=== PATIENT | female | born 1970 | race African-American/Black ===

== ENCOUNTER 2019-09-30 07:55 | Outpatient (CLI) | payer OTHER, SELFPAY ==
--- NOTE | ~2019-09-30 | MM_ITS ---
EXAMINATION: MM screening [facility] w [facility] HISTORY: Screening mammogram TECHNIQUE: Craniocaudal and mediolateral oblique 3-D tomosynthesis images were obtained and synthetic 2-D images were generated. CAD analysis was submitted and interpreted. COMPARISON: No prior mammogram is available for comparison at this institution. BREAST PARENCHYMAL COMPOSITION: There are scattered areas of fibroglandular density.... FINDINGS: There is no evidence of suspicious mass, calcification, or architectural distortion to sugg est malignancy in either breast. There has been no suspicious interval change. IMPRESSION: 1. No mammographic evidence of malignancy. 2. Recommend routine screening mammography in one year. BI-RADS Category 1: Negative Reviewed, dictated and finalized at location A.
== END 2019-09-30 07:56 | disposition home or self-care (01) ==
DX: Z12.31 Encounter for screening mammogram for malignant neoplasm of breast (principal)
CPT/HCPCS: 77063; 77067

== ENCOUNTER 2020-10-02 07:52 | Outpatient (CLI) | payer OTHER, SELFPAY ==
--- NOTE | ~2020-10-02 | MM_ITS ---
EXAMINATION: MM screening [facility] BI w ashlee HISTORY: Screening TECHNIQUE: Craniocaudal and mediolateral oblique 3-D tomosynthesis images were obtained and synthetic 2-D images were generated. CAD analysis was submitted and interpreted. COMPARISON: Comparison to multiple prior studies sequentially, with oldest reviewed study dated 08/2015. BREAST PARENCHYMAL COMPOSITION: There are scattered areas of fibroglandular density. FINDINGS: There is no evidence of suspicious mass, calcification, or architectural distortion to sugg est malignancy in either breast. There has been no suspicious interval change. IMPRESSION: 1. No mammographic evidence of malignancy. 2. Recommend routine screening mammography in one year. BI-RADS Category 1: Negative Reviewed, dictated and finalized at location A.
== END 2020-10-02 07:53 | disposition home or self-care (01) ==
LOC: ANHIMG 07:57
DX: Z12.31 Encounter for screening mammogram for malignant neoplasm of breast (principal)
CPT/HCPCS: 77063; 77067

== ENCOUNTER 2021-10-04 16:39 | Outpatient (CLI) | payer OTHER, SELFPAY ==
--- NOTE | ~2021-10-04 | MM_ITS ---
EXAMINATION: MM screening [facility] BI w ashlee HISTORY: Screening TECHNIQUE: Craniocaudal and mediolateral oblique 3-D tomosynthesis images were obtained and synthetic 2-D images were generated. CAD analysis was submitted and interpreted. COMPARISON: Comparison to multiple prior studies sequentially, with oldest reviewed study dated 08/2015. BREAST PARENCHYMAL COMPOSITION: There are scattered areas of fibroglandular density. FINDINGS: There is no evidence of suspicious mass, calcification, or architectural distortion to sugg est malignancy in either breast. There has been no suspicious interval change. IMPRESSION: 1. No mammographic evidence of malignancy. 2. Recommend routine screening mammography in one year. BI-RADS Category 1: Negative Reviewed, dictated and finalized at location A.
== END 2021-10-04 16:40 | disposition home or self-care (01) ==
LOC: ANHIMG 16:41
PROVIDERS: PCP Physician Assistant; Visit Provider Physician Assistant
DX: Z12.31 Encounter for screening mammogram for malignant neoplasm of breast (principal)
CPT/HCPCS: 77063; 77067

== ENCOUNTER 2023-09-04 08:35 | Outpatient (CLI) | payer OTHER, SELFPAY ==
--- NOTE | ~2023-09-04 | MM_ITS ---
EXAMINATION: MM screening [facility] HISTORY: Screening mammogram TECHNIQUE: Craniocaudal and mediolateral oblique 3-D tomosynthesis images were obtained and synthetic 2-D images were generated. CAD analysis was submitted and interpreted. COMPARISON: October 04, 2021, October 02, 2020 bilateral screening mammogram examinations BREAST PARENCHYMAL COMPOSITION: There are scattered areas of fibroglandular density. FINDINGS: There is no evidence of suspicious mass, calcification, or architectural distortion to sugg est malignancy in either breast. There has been no suspicious interval change. IMPRESSION: 1. No mammographic evidence of malignancy. 2. Recommend routine screening mammography in one year. BI-RADS Category 1: Negative Reviewed, dictated and finalized at location A.
== END 2023-09-04 08:36 | disposition home or self-care (01) ==
PROVIDERS: PCP Physician Assistant; Visit Provider Physician Assistant
DX: Z12.31 Encounter for screening mammogram for malignant neoplasm of breast (principal)
CPT/HCPCS: 77063; 77067

== ENCOUNTER 2024-09-13 14:22 | Outpatient (CLI) | payer OTHER, SELFPAY ==
--- NOTE | ~2024-09-13 | MM_ITS ---
EXAMINATION: MM screening juventino BI w ashlee HISTORY: Screening TECHNIQUE: Craniocaudal and mediolateral oblique 3-D tomosynthesis images were obtained and synthetic 2-D images were generated. CAD analysis was submitted and interpreted. COMPARISON: 09/04/2023 and dating back to 09/30/2019 BREAST PARENCHYMAL COMPOSITION: There are scattered areas of fibroglandular density. FINDINGS: Punctate calcifications are detected bilaterally, stable and benign in appearance. Stable parenchymal pattern without suspicious microcalcifications, architectural distortion, discrete masses or significant asymmetry. IMPRESSION: 1. No mammographic evidence of malignancy. 2. Recommend routine screening mammography in one year. BI-RADS Category 2: Benign finding(s). Reviewed, dictated and finalized at location A.
--- OUTSIDE RECORDS SUMMARY | 2024-09-13 16:37 | XMS_ITS | Data Portability ---
Author Organization [facility] Address [address] [place] [address] Care Team Providers Care Student Financial Services Counselor Name Role Phone GLORIA SAEED Primary Care Provider Assessment Encounter Date Assessment Date Assessment LastModified by Organization Details LastModified Time 09/17/2021 09/17/2021 Last pap 2019, nl. Rec'd pt schedule upcoming WWE. [email or web address] Not available 09/17/2021 11:18:55 Plan of Treatment Reminders Order Date Submit Date Provider Last Modified By Organization Details Last Modified Time Details Appointments None recorde d. Lab CMP, serum or plasma 2022 023 [facility]ON [facility], [address], [place], [address], 3 23:09:08 lipid panel, serum 2022 023 [facility], [address], [place], [address], 3 23:09:07 CBC w/ auto diff 2022 023 [facility], [address], [place], [address], 3 23:09:08 TSH + free T4, serum 2022 023 [facility], [address], [place], [address], 3 12:08:22 HbA1c (hemogl obin A1c), blood 2022 023 [place] [facility], [address], [place], [address], 3 12:08:23 bacteri al vaginos is score, SHIKHA+pro be, vaginal fluid (OBS) 2022 023 [facility], [address], [place], [address], 3 12:08:22 cytolog y report, thin prep, smear or scrapin g, cervica l or vaginal 2021 022 [facility], [address], [place], [address], 2 09:38:09 bacteri al vaginos is score, SHIKHA+pro be, vaginal fluid (OBS) 2021 022 [facility], [address], [place], [address], 2 08:22:15 CBC w/ auto diff 2021 022 [facility], [address], [place], [address], 2 07:11:30 CMP, serum or plasma 2021 022 [facility], [address], [place], [address], 2 07:11:31 lipid panel, serum 2021 [facility], [address], [place], [address], 2 07:11:31 HbA1c (hemogl obin A1c), blood 2021 022 [facility], [address], [place], [address], 2 07:11:32 TSH + free T4, serum 2021 022 [place] [facility], [address], [place], [address], 2 07:11:29 bacteri al vaginos is + vaginit is panel, vaginal 2020 021 [facility] (Lab), [address], [place], [address], 15:10:14 Referral gastroe nterolo gist referra l 2021 022 [facility], [address], [place], [address], 2 11:24:06 Procedures colonos copy procedu re (PROC) 2021 022 [facility] (Surgery Sched), [address], [place], [address], 2 11:14:25 Surgeries None recorde d. Imaging MAMMO, screeni ng, bilater al 2022 023 [facility], [address], [place], [address], 3 11:40:23 MAMMO, screeni ng, bilater al 2020 021 [facility], [address], [place], [address], 1 15:12:44 Medication Orders nicotin e 14 mg/24 hr daily transde rmal patch 2022 023 [id number], [address], [place], [place], [id number], 3 11:40:23 Dulcola x (bisaco dyl) 5 mg tablet, delayed release 2021 [facility] #[id number], [address], [place], [place], [id number], 10:21:31 Miralax 17 gram/do se oral powder 2021 [facility] #[id number], [address], [place], [place], [id number], 10:21:19 Patient TargetsNo targets recorded. Patient Instructions Encounter Date Encounter Id Patient Instructions Last Modified By Organization Details Last Modified Time 09/06/2020 [id number] hot flashes during menopause: care instructions Not available 09/06/2020 15:11:11 learning about breast cancer screening Not available 09/06/2020 15:11:11 09/17/2021 [id number] hot flashes during menopause: care instructions [email or web address] Not available 09/17/2021 11:05:01 04/24/2023 [id number] Quitting Tobacco : Care Instructions [email or web address] Not available 04/24/2023 11:40:22 hot flashes during menopause: care instructions [email or web address] Not available 04/24/2023 11:40:23 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 for Screening for malignant neoplasm of colon Referring Physician: Gloria Saeed, Family Medicine, Encounter Date: 09/17/2021 Results Created Date Observation Date Name Description Value Unit Range Abnormal Flag Note LastModifiedBy Organization Detail LastModifiedTime 09/07/1909/08/2020 bacte rial vagin osis + vagin itis panel , vagin al atopobium vaginae High - 2 score abnormal Not Available [facility] (Lab) [address], [place], [address], 09/08/2020 15:10:14 09/07/19 21 09/08/2020 bacte rial vagin osis + vagin itis panel , vagin al bvab 2 High - 2 score abnormal Not Available [facility] (Lab) [address] [place], [address], 09/08/2020 15:10:14 09/07/19 21 09/08/2020 bacte rial vagin osis + vagin itis panel , vagin al megasphaera 1 High - 2 score abnormal Calcu late total score by alie phoenix the 3 indiv idual bacte rial vagin osis (BV) marke r score s toget her. Total score is inter prete d as follo ws: Total score 0-1: Indic ates the absen ce of BV. Total score 2: Indet ermin ate for BV. Addit ional clini jac data shoul d be evalu ated to estab yuval a diagn osis. Total score 3-6: Indic ates the prese nce of BV. . This test was devel oped and its perfo rmanc e patsy cteri stics deter mined by [facility]. It has not been clear ed or appro miguel by the Food and Drug Admin istra tion. Not Available [facility] (Lab) [address], [place], [address], 09/08/2020 15:10:14 09/07/19 21 09/08/2020 bacte rial vagin osis + vagin itis panel , vagin al wilmer albicans, SHIKHA Negati ve negati ve Not Available [facility] (Lab) [address], [place], [address], 09/08/2020 15:10:14 09/07/19 21 09/08/2020 bacte rial vagin osis + vagin itis panel , vagin al wilmer glabrata, SHIKHA Negati ve negati ve Not Available [facility] (Lab) [address], [place], [address], 09/08/2020 15:10:14 09/07/19 21 09/08/2020 bacte rial vagin osis + vagin itis panel , vagin al trich vag by SHIKHA Negati ve negati ve Not Available [facility] [address] [place], [address], 09/08/2020 15:10:14 09/07/19 21 09/08/2020 bacte rial vagin osis + vagin itis panel , vagin al chlamydia trachomatis, SHIKHA Negati ve negati ve Not Available [facility] (Lab) [address], [place], [address], 09/08/2020 15:10:14 09/07/19 21 09/08/2020 bacte rial vagin osis + vagin itis panel , vagin al neisseria gonorrhoeae, SHIKHA Negati ve negati ve Not Available [facility] (Lab) [address], [place], [address], 09/08/2020 15:10:14 09/21/19 22 09/21/2021 TSH+F REE T4 TSH 0.409 uIU/m L 0.450- 4.500 below low normal Not Available [facility] ([facility]) [address] [place], [address], 09/21/2021 07:11:29 09/21/19 22 09/21/2021 TSH+F REE T4 T4,free(dire ct) 0.94 NG/dL 0.82-1 .77 Not Available [facility] ([facility]) [address] [place], [address], 09/21/2021 07:11:29 09/21/19 22 09/21/2021 CBC WITH DIFFE RENTI AL/PL ATELE T WBC 5.2 x10e3 /uL 3.4-10 .8 Not Available [facility] ([facility]) [address] [place], [address], 09/21/2021 07:11:30 09/21/19 22 09/21/2021 CBC WITH DIFFE RENTI AL/PL ATELE T RBC 4.30 x10e6 /uL 3.77-5 .28 Not Available [facility] ([facility]) [address] [place], [address], 09/21/2021 07:11:30 09/21/19 22 09/21/2021 CBC WITH DIFFE RENTI AL/PL ATELE T hemoglobin 12.9 g/dL 11.1-1 5.9 Not Available [facility] ([facility]) [address] [place], [address], 09/21/2021 07:11:30 09/21/19 22 09/21/2021 CBC WITH DIFFE RENTI AL/PL ATELE T hematocrit 38.7 % 34.0-4 6.6 Not Available [facility] ([facility]) [address] [place], [address], 09/21/2021 07:11:30 09/21/19 22 09/21/2021 CBC WITH DIFFE RENTI AL/PL ATELE T MCV 90 fL 79-97 Not Available [facility] ([facility]) [address] [place], [address], 09/21/2021 07:11:30 09/21/19 22 09/21/2021 CBC WITH DIFFE RENTI AL/PL ATELE T MCH 30.0 pg 26.6-3 3.0 Not Available [facility] ([facility]) [address] [place], [address], 09/21/2021 07:11:30 09/21/19 22 09/21/2021 CBC WITH DIFFE RENTI AL/PL ATELE T MCHC 33.3 g/dL 31.5-3 5.7 Not Available [facility] ([facility]) [address] [place], [address], 09/21/2021 07:11:30 09/21/19 22 09/21/2021 CBC WITH DIFFE RENTI AL/PL ATELE T RDW 13.6 % 11.7-1 5.4 Not Available [facility] ([facility]) [address] [facility], [place], [address], 09/21/2021 07:11:30 09/21/19 22 09/21/2021 CBC WITH DIFFE RENTI AL/PL ATELE T platelets 228 x10e3 /uL 150-45 0 Not Available [facility] ([facility]) [address] [facility], [place], [address], 09/21/2021 07:11:30 09/21/19 22 09/21/2021 CBC WITH DIFFE RENTI AL/PL ATELE T neutrophils 41 % not estab. Not Available [facility] ([facility]) [address] [facility], [place], [address], 09/21/2021 07:11:30 09/21/19 22 09/21/2021 CBC WITH DIFFE RENTI AL/PL ATELE T lymphs 51 % not estab. Not Available [facility] ([facility]) [address] [facility], [place], [address], 09/21/2021 07:11:30 09/21/19 22 09/21/2021 CBC WITH DIFFE RENTI AL/PL ATELE T monocytes 5 % not estab. Not Available [facility] ([facility]) [address] [facility], [place], [address], 09/21/2021 07:11:30 09/21/19 22 09/21/2021 CBC WITH DIFFE RENTI AL/PL ATELE T eos 2 % not estab. Not Available [facility] ([facility]) [address] [place], [address], 09/21/2021 07:11:30 09/21/19 22 09/21/2021 CBC WITH DIFFE RENTI AL/PL ATELE T basos 1 % not estab. Not Available [facility] ([facility]) [address] [place], [address], 09/21/2021 07:11:30 09/21/19 22 09/21/2021 CBC WITH DIFFE RENTI AL/PL ATELE T immature cells SPECIAL EDUCATION PRESCHOOL TEACHER Not Available [facility] ([facility]) [address] [facility], [place], [address], 09/21/2021 07:11:30 09/21/19 22 09/21/2021 CBC WITH DIFFE RENTI AL/PL ATELE T neutrophils (absolute) 2.1 x10e3 /uL 1.4-7. 0 Not Available [facility] ([facility]) [address] [facility], [place], [address], 09/21/2021 07:11:30 09/21/19 22 09/21/2021 CBC WITH DIFFE RENTI AL/PL ATELE T lymphs (absolute) 2.7 x10e3 /uL 0.7-3. 1 Not Available [facility] ([facility]) [address] [facility], [place], [address], 09/21/2021 07:11:30 09/21/19 22 09/21/2021 CBC WITH DIFFE RENTI AL/PL ATELE T monocytes(ab solute) 0.3 x10e3 /uL 0.1-0. 9 Not Available [facility] ([facility]) [address] [place], [address], 09/21/2021 07:11:30 09/21/19 22 09/21/2021 CBC WITH DIFFE RENTI AL/PL ATELE T eos (absolute) 0.1 x10e3 /uL 0.0-0. 4 Not Available [facility] ([facility]) [address] [facility], [place], [address], 09/21/2021 07:11:30 09/21/19 22 09/21/2021 CBC WITH DIFFE RENTI AL/PL ATELE T baso (absolute) 0.0 x10e3 /uL 0.0-0. 2 Not Available [facility] ([facility]) [address] [facility], [place], [address], 09/21/2021 07:11:30 09/21/19 22 09/21/2021 CBC WITH DIFFE RENTI AL/PL ATELE T immature granulocytes 0 % not estab. Not Available [facility] ([facility]) [address] [facility], [place], [address], 09/21/2021 07:11:30 09/21/19 22 09/21/2021 CBC WITH DIFFE RENTI AL/PL ATELE T immature grans (abs) 0.0 x10e3 /uL 0.0-0. 1 Not Available [facility] ([facility]) [address] [facility], [place], [address], 09/21/2021 07:11:30 09/21/19 22 09/21/2021 CBC WITH DIFFE RENTI AL/PL ATELE T NRBC [employer]ATION [employer] TEACHER Not Available [facility] ([facility]) [address] [facility], [place], [address], 09/21/2021 07:11:30 09/21/19 22 09/21/2021 CBC WITH DIFFE RENTI AL/PL ATELE T hematology comments: SPECIAL EDUCATION PRESCHOOL TEACHER Not Available [facility] ([facility]) [address] [facility], [place], [address], 09/21/2021 07:11:30 09/21/19 22 09/21/2021 COMP. METAB OLIC PANEL (14) glucose 89 mg/dL 65-99 Not Available [facility] ([facility]) [address] [facility], [place], [address], 09/21/2021 07:11:30 09/21/19 22 09/21/2021 COMP. METAB OLIC PANEL (14) BUN 13 mg/dL 6-24 Not Available [facility] ([facility]) [address] [facility], [place], [address], 09/21/2021 07:11:30 09/21/19 22 09/21/2021 COMP. METAB OLIC PANEL (14) creatinine 0.81 mg/dL 0.57-1 .00 Not Available [facility] ([facility]) [address] [facility], [place], [address], 09/21/2021 07:11:30 09/21/19 22 09/21/2021 COMP. METAB OLIC PANEL (14) eGFR 88 mL/mi n/1.7 3 >59 Not Available [facility] ([facility]) [address] [facility], [place], [address], 09/21/2021 07:11:30 09/21/19 22 09/21/2021 COMP. METAB OLIC PANEL (14) BUN/creatini ne ratio 16 9-23 Not Available [facility] ([facility]) [address] [facility], [place], [address], 09/21/2021 07:11:30 09/21/19 22 09/21/2021 COMP. METAB OLIC PANEL (14) sodium 144 mmol/ L 134-14 4 Not Available [facility] ([facility]) [address] [facility], [place], [address], 09/21/2021 07:11:30 09/21/19 22 09/21/2021 COMP. METAB OLIC PANEL (14) potassium 4.2 mmol/ L 3.5-5. 2 Not Available [facility] ([facility]) [address] [facility], [place], [address], 09/21/2021 07:11:30 09/21/19 22 09/21/2021 COMP. METAB OLIC PANEL (14) chloride 104 mmol/ L 96-106 Not Available [facility] ([facility]) [address] [facility], [place], [address], 09/21/2021 07:11:30 09/21/19 22 09/21/2021 COMP. METAB OLIC PANEL (14) carbon dioxide, total 25 mmol/ L 20-29 Not Available [facility] ([facility]) [address] [place], [address], 09/21/2021 07:11:30 09/21/19 22 09/21/2021 COMP. METAB OLIC PANEL (14) calcium 9.6 mg/dL 8.7-10 .2 Not Available [facility] ([facility]) [address] [facility], [place], [address], 09/21/2021 07:11:30 09/21/19 22 09/21/2021 COMP. METAB OLIC PANEL (14) protein, total 6.8 g/dL 6.0-8. 5 Not Available [facility] ([facility]) [address] [facility], [place], [address], 09/21/2021 07:11:30 09/21/19 22 09/21/2021 COMP. METAB OLIC PANEL (14) albumin 4.3 g/dL 3.8-4. 8 Not Available [facility] ([facility]) [address] [place], [address], 09/21/2021 07:11:30 09/21/19 22 09/21/2021 COMP. METAB OLIC PANEL (14) globulin, total 2.5 g/dL 1.5-4. 5 Not Available [facility] ([facility]) [address] [place], [address], 09/21/2021 07:11:30 09/21/19 22 09/21/2021 COMP. METAB OLIC PANEL (14) A/G ratio 1.7 1.2-2. 2 Not Available [facility] ([facility]) [address] [place], [address], 09/21/2021 07:11:30 09/21/19 22 09/21/2021 COMP. METAB OLIC PANEL (14) bilirubin, total 0.6 mg/dL 0.0-1. 2 Not Available [facility] ([facility]) [address] [place], [address], 09/21/2021 07:11:30 09/21/19 22 09/21/2021 COMP. METAB OLIC PANEL (14) alkaline phosphatase 122 IU/L 44-121 above high normal Not Available [facility] ([facility]) [address] [place], [address], 09/21/2021 07:11:30 09/21/19 22 09/21/2021 COMP. METAB OLIC PANEL (14) AST (SGOT) 17 IU/L 0-40 Not Available [facility] ([facility]) [address] [place], [address], 09/21/2021 07:11:30 09/21/19 22 09/21/2021 COMP. METAB OLIC PANEL (14) ALT (SGPT) 7 IU/L 0-32 Not Available [facility] ([facility]) [address] [place], [address], 09/21/2021 07:11:30 09/21/19 22 09/21/2021 LIPID PANEL W/ CHOL/ HDL RATIO cholesterol, total 181 mg/dL 100-19 9 Not Available [facility] ([facility]) [address] [place], [address], 09/21/2021 07:11:31 09/21/19 22 09/21/2021 LIPID PANEL W/ CHOL/ HDL RATIO triglyceride s 76 mg/dL 0-149 Not Available [facility] ([facility]) [address] [place], [address], 09/21/2021 07:11:31 09/21/19 22 09/21/2021 LIPID PANEL W/ CHOL/ HDL RATIO HDL cholesterol 85 mg/dL >39 Not Available [facility] ([facility]) [address] [place], [address], 09/21/2021 07:11:31 09/21/19 22 09/21/2021 LIPID PANEL W/ CHOL/ HDL RATIO VLDL cholesterol jac 14 mg/dL 5-40 Not Available [facility] ([facility]) [address] [facility], [place], [address], 09/21/2021 07:11:31 09/21/19 22 09/21/2021 LIPID PANEL W/ CHOL/ HDL RATIO LDL chol calc ([facility]) 82 mg/dL 0-99 Not Available [facility] ([facility]) [address] [facility], [place], [address], 09/21/2021 07:11:31 09/21/19 22 09/21/2021 LIPID PANEL W/ CHOL/ HDL RATIO comment: [employer] TE[employer]ER Not Available [facility] ([facility]) [address] [facility], [place], [address], 09/21/2021 07:11:31 09/21/19 22 09/21/2021 LIPID PANEL W/ CHOL/ HDL RATIO T. chol/HDL ratio 2.1 ratio 0.0-4. 4 T. Chol/ HDL Ratio Men Women 1/2 Avg.R isk 3.4 3.3 Avg.R isk 5.0 4.4 2X Avg.R isk 9.6 7.1 3X Avg.R isk 23.4 11.0 Not Available [facility] ([facility]) [address] [facility], [place], [address], 09/21/2021 07:11:31 09/21/19 22 09/21/2021 HEMOG LOBIN A1C hemoglobin A1C 5.5 % 4.8-5. 6 Predi abete s: 5.7 - 6.4 Diabe noble: >6.4 Glyce hannah contr ol for adult s with diabe noble: <7.0 Not Available [facility] ([facility]) [address] [facility], [place], [address], 09/21/2021 07:11:32 10/12/19 22 10/15/2021 NUSWA B VG+, HSV atopobium vaginae High - 2 score abnormal Not Available [facility] ([facility]) [address] [facility], [place], [address], 10/17/2021 08:22:15 10/12/19 22 10/15/2021 NUSWA B VG+, HSV bvab 2 High - 2 score abnormal Not Available [facility] ([facility]) [address] [facility], [place], [address], 10/17/2021 08:22:15 10/12/19 22 10/15/2021 NUA B VG+, HSV megasphaera 1 High - 2 score abnormal Calcu late total score by alie phoenix the 3 indiv idual bacte rial vagin osis (BV) marke r score s toget her. Total score is inter prete d as follo ws: Total score 0-1: Indic ates the absen ce of BV. Total score 2: Indet ermin ate for BV. Addit ional clini jac data shoul d be evalu ated to estab yuval a diagn osis. Total score 3-6: Indic ates the prese nce of BV. This test was devel oped and its perfo rmanc e patsy cteri stics deter mined by [facility]. It has not been clear ed or appro miguel by the Food and Drug Admin istra tion. Not Available [facility] ([facility]) [address] [facility], [place], [address], 10/17/2021 08:22:15 10/12/19 22 10/15/2021 NUA B VG+, HSV wilmer albicans, SHIKHA Negati ve negati ve Not Available [facility] ([facility]) [address] [facility], [place], [address], 10/17/2021 08:22:15 10/12/19 22 10/15/2021 NUSWA B VG+, HSV wilmer glabrata, SHIKHA Negati ve negati ve Not Available [facility] ([facility]) [address] [place], [address], 10/17/2021 08:22:15 10/12/19 22 10/15/2021 NUA B VG+, HSV trich vag by SHIKHA Negati ve negati ve Not Available [facility] ([facility]) [address] [place], [address], 10/17/2021 08:22:15 10/12/19 22 10/15/2021 NUA B VG+, HSV chlamydia trachomatis, SHIKHA Negati ve negati ve Not Available [facility] ([facility]) [address] [place], [address], 10/17/2021 08:22:15 10/12/19 22 10/15/2021 NUA B VG+, HSV neisseria gonorrhoeae, SHIKHA Negati ve negati ve Not Available [facility] ([facility]) [address] [place], [address], 10/17/2021 08:22:15 10/12/19 22 10/17/2021 NUA B VG+, HSV hsv 1 SHIKHA Negati ve negati ve Not Available [facility] ([facility]) [address] [place], [address], 10/17/2021 08:22:15 10/12/19 22 10/17/2021 NUA B VG+, HSV hsv 2 SHIKHA Negati ve negati ve Not Available [facility] ([facility]) [address] [place], [address], 10/17/2021 08:22:15 10/12/19 22 10/15/2021 IGP, APTIM A HPV, RFX 16/18 ,45 HPV aptima Negati ve negati ve This nucle ic acid ampli ficat ion test detec ts fourt een high- risk HPV types (16,1 8,31, 33,35 ,39,4 5,51, 52,56 ,58,5 9,66, 68) witho ut diffe renti ation . Not Available [facility] ([facility]) [address] [facility], [place], [address], 10/17/2021 09:38:09 10/12/19 22 10/17/2021 IGP, APTIM A HPV, RFX 16/18 ,45 diagnosis: Segun MLAONEY FOR INTRA EPITH ELIAL LESIO N OR GUSTAVOBETHANY GUY . THIS SPECI MEN WAS RESCR EENED PART OF OUR QUALI TY CONTR OL PROGR AM. Not Available [facility] ([facility]) [address] [facility], [place], [address], 10/17/2021 09:38:09 10/12/19 22 10/17/2021 IGP, APTIM A HPV, RFX 16/18 ,45 specimen adequacy: Segun calhoun Satis facto krystina for evalu ation . No endoc ervic al compo nent is ident ified . Not Available [facility] ([facility]) [address] [facility], [place], [address], 10/17/2021 09:38:09 10/12/19 22 10/17/2021 IGP, APTIM A HPV, RFX 16/18 ,45 clinician provided ICD10: Segun calhoun Z12.4 Not Available [facility] ([facility]) [address] [facility], [place], [address], 10/17/2021 09:38:09 10/12/19 22 10/17/2021 IGP, APTIM A HPV, RFX 16/18 ,45 performed by: Ramona Negrete (ASCP ) Not Available [facility] ([facility]) [address] [facility], [place], [address], 10/17/2021 09:38:09 10/12/19 22 10/17/2021 IGP, APTIM A HPV, RFX 16/18 ,45 QC reviewed by: Segun Lucia tte Jhonatan , Cytot parmjit calhoun Not Available [facility] ([facility]) [address] [facility], [place], [address], 10/17/2021 09:38:09 10/12/19 22 10/17/2021 IGP, APTIM A HPV, RFX 16/18 ,45 . . Not Available [facility] ([facility]) [address] [facility], [place], [address], 10/17/2021 09:38:09 10/12/19 22 10/17/2021 IGP, APTIM A HPV, RFX 16/18 ,45 note: Segun calhoun The Pap smear is a scree sharad test desig geraldine to aid in the detec tion of effie ligna nt and malig nant condi tions of the uteri ne cervi x. It is not a diagn ostic proce dure and shoul d not be used as the sole means of detec ting cervi jac cance r. Both false -posi tive and false -nega tive repor ts do occur . Not Available [facility] ([facility]) [address] [facility], [place], [address], 10/17/2021 09:38:09 10/12/19 22 10/17/2021 IGP, APTIM A HPV, RFX 16/18 ,45 test methodology: Segun calhoun This liqui d based ThinP rep(R ) pap test was scree geraldine with the use of an image guide des roger Not Available [facility] ([facility]) [address] [facility], [place], [address], 10/17/2021 09:38:09 04/24/20 23 04/24/2023 LIPID PANEL WITH LDL/H DL RATIO cholesterol, total 229 mg/dL 100-19 9 above high normal Not Available [facility] Department [address] [place], [address], 04/24/2023 23:09:07 04/24/20 23 04/24/2023 LIPID PANEL WITH LDL/H DL RATIO triglyceride s 101 mg/dL 0-149 Not Available [facility] Department [address] [place], [address], 04/24/2023 23:09:07 04/24/20 23 04/24/2023 LIPID PANEL WITH LDL/H DL RATIO HDL cholesterol 100 mg/dL 40-999 Not Available [facility] Department [address] [place], [address], 04/24/2023 23:09:07 04/24/20 23 04/24/2023 LIPID PANEL WITH LDL/H DL RATIO VLDL cholesterol jac 20 mg/dL 5-40 Not Available [facility] Department [address] [place] [address], [address], 04/24/2023 23:09:07 04/24/20 23 04/24/2023 LIPID PANEL WITH LDL/H DL RATIO LDL chol calc (nih) 124 mg/dL 0-99 above high normal Not Available [facility] Department [address] [place], [address], 04/24/2023 23:09:07 04/24/20 23 04/24/2023 LIPID PANEL WITH LDL/H DL RATIO LDL/HDL ratio 1.2 0-3.2 Not Available [facility] Department [address] [place], [address], 04/24/2023 23:09:07 04/24/20 23 04/24/2023 COMP. METAB OLIC PANEL (14) glucose 80 mg/dL 70-99 Not Available [facility] Department [address] [place], [address], 04/24/2023 23:09:08 04/24/20 23 04/24/2023 COMP. METAB OLIC PANEL (14) BUN 9 mg/dL 6-24 Not Available [facility] Department [address] [place], [address], 04/24/2023 23:09:08 04/24/20 23 04/24/2023 COMP. METAB OLIC PANEL (14) creatinine 0.75 mg/dL 0.76-1 .27 below low normal Not Available [facility] Department [address] [place], [address], 04/24/2023 23:09:08 04/24/20 23 04/24/2023 COMP. METAB OLIC PANEL (14) eGFR 96 >=60 Units for eGFR value s are mL/mi n/1.7 3 The eGFR Calcu latio n has not been valid ated for patie nts under the age of 18. If test resul ts are displ ayed for a patie nt under the age of 18, disre wendy that value . Not Available [facility] Department [address] [place] [address], [address], 04/24/2023 23:09:08 04/24/20 23 04/24/2023 COMP. METAB OLIC PANEL (14) BUN/creatini ne ratio 13 9-23 Not Available [facility] Department [address] [place], [address], 04/24/2023 23:09:08 04/24/20 23 04/24/2023 COMP. METAB OLIC PANEL (14) sodium 143 mmol/ L 134-14 4 Not Available [facility] Department [address] [place], [address], 04/24/2023 23:09:08 04/24/20 23 04/24/2023 COMP. METAB OLIC PANEL (14) potassium 3.8 mmol/ L 3.5-5. 2 Not Available [facility] Department [address] [place], [address], 04/24/2023 23:09:08 04/24/20 23 04/24/2023 COMP. METAB OLIC PANEL (14) chloride 104 mmol/ L 96-106 Not Available [facility] Department [address] [place], [address], 04/24/2023 23:09:08 04/24/20 23 04/24/2023 COMP. METAB OLIC PANEL (14) carbon dioxide, total 24 mmol/ L Not Available [facility] Department [address] [place], [address], 04/24/2023 23:09:08 04/24/20 23 04/24/2023 COMP. METAB OLIC PANEL (14) calcium 10.3 mg/dL 8.7-10 .2 above high normal Not Available [facility] Department [address] [place], [address], 04/24/2023 23:09:08 04/24/20 23 04/24/2023 COMP. METAB OLIC PANEL (14) protein, total 7.9 g/dL 6.0-8. 5 Not Available [facility] Department [address] [place], [address], 04/24/2023 23:09:08 04/24/20 23 04/24/2023 COMP. METAB OLIC PANEL (14) albumin 4.9 g/dL 3.8-4. 9 Not Available [facility] Department [address] [place], [address], 04/24/2023 23:09:08 04/24/20 23 04/24/2023 COMP. METAB OLIC PANEL (14) globulin, total 3.0 g/dL 1.5-4. 5 Not Available [facility] Department [address] [place], [address], 04/24/2023 23:09:08 04/24/20 23 04/24/2023 COMP. METAB OLIC PANEL (14) A/G ratio 2.0 1.2-2. 2 Not Available [facility] Department [address] [place], [address], 04/24/2023 23:09:08 04/24/20 23 04/24/2023 COMP. METAB OLIC PANEL (14) bilirubin, total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
--- OUTSIDE RECORDS SUMMARY | 2024-09-13 16:37 | XMS_ITS | Clinical Summary ---
Author Organization [facility] Address [address] [place] [address] Care Team Providers Care Geophysics Scientist Name Role Phone Unavailable Primary Care Provider Unavailabl e Immunizations Immunization Administration Dates Next Due Covid-19, Mrna, Lnp-s, Pf, 30 Mcg/0.3 Ml Dose (P fizer) 04/25/2021 Social History Tobacco Use Types Packs/Day Years Used Date Smoking Tobacco: Never Assessed Comments Unknown Sex and Gender Information Value Date Recorded Sex Assigned at Not on file Legal Sex Female 11:16 AM CDT Gender Identity Not on file Sexual Orientation Not on file Plan of Treatment Health Maintenance Due Date Last Done Comments Hepatitis C Virus (HCV) Screening 1971 Hepatitis B Immunization (1 of 3 - 19+ 3-dose series) 1990 Pap Smear 1992 Cervical Cancer Screening (CCS) 2001 HPV/Cotest 2001 Colonoscopy 2016 Colorectal Cancer Screening 2016 Cologuard 2021 Immunochemical Fecal Occult Blood 2021 Mammogram 2021 Pneumococcal Immunization (5 0+ years) (1 of 1 - PCV) 2021 Zoster Immunization (1 of 2) 2021 Influenza Immunization (#1) 02/22/202403/23, 04/09/2017 SARS-COV-2 Immunization ( season) 2024 04/25/2021, 07/20/2020, 06/29/2020 Respiratory Syncytial Virus (RSV) Immunization (Adult) (1 - 1-dose 75+ series) 2046 DTaP/Tdap/Td Immunization Discontinued 05/23/2015 TdaP Immunization Completed 05/23/2015 Meningococcal Immunization (ACWY) Aged Out No longer eligible based on patient's age to complete this topic Pneumococcal Immunization Combined Aged Out No longer eligible based on patient's age to complete this topic Rotavirus Immunization Aged Out No lo nger eligible based on patient's age to complete this topic
== END 2024-09-13 14:23 | disposition home or self-care (01) ==
LOC: ANHIMG 14:25
PROVIDERS: PCP Physician Assistant; Visit Provider Physician Assistant
DX: Z12.31 Encounter for screening mammogram for malignant neoplasm of breast (principal)
CPT/HCPCS: 77063; 77067